=== PATIENT | male | born 1950 | race Caucasian/White ===

== ENCOUNTER 2017-03-16 02:59 | Emergency (ER) | payer BC ==
[2017-03-16] MEDS ORDERED: Fentanyl 100 MCG/2 ML VIAL ONE (03:20)
[2017-03-16] MEDS ORDERED: Ketorolac Tromethamine 30 MG/ML VIAL ONE (03:20)
[2017-03-16] MEDS ORDERED: Ketorolac Tromethamine 60 MG/2 ML VIAL ONE (03:21)
[2017-03-16 03:34] LABS: #Basophils 0.1 thou/uL (0.0-0.2); #Eosinphils 0.2 thou/uL (0.0-0.7); #Lymphocytes 3.2 thou/uL (1.20-3.40); #Monocytes 0.9 thou/uL (0.11-0.59); #Neutrophils 9.1 thou/uL (1.40-6.50); %Basophils 0.9 % (0.0-1.0); %Eosinophils 1.6 % (0.0-10.0); %Lymphocytes 23.8 % (21.0-51.0); %Monocytes 6.6 % (0.0-10.0); Hemoglobin 16.4 g/dL (14.0-18.0); Mean Corpuscular HGB CONC 33.9 g/dL (32.0-36.0); Mean Corpuscular Hemoglobin 30.1 pg (27.0-31.0); Mean Platelet Volume 8.9 fL (7.4-10.4); Platelet Count 211 thou/uL (130-400); RBC Distribution Width 12.8 % (11.5-14.5); Red Blood Cell (RBC) Count 5.45 mill/uL (4.70-6.10); White Blood Cell (WBC) Count 13.5 thou/uL (4.8-10.8)
[2017-03-16] MEDS ORDERED: Ondansetron HCl/PF 4 MG/2 ML Vial ONE (03:35)
[2017-03-16 03:45] LABS: ALT (SGPT) 32 U/L (0-55); AST (SGOT) 19 U/L (5-34); Albumin 4.5 g/dL (3.4-4.8); Alkaline Phosphatase 57 U/L (40-150); Anion Gap 16 mmol/L (10-20); BUN (Urea Nitrogen) 19 mg/dL (8.4-25.7); Bilirubin, Total 1.1 mg/dL (0.2-1.2); Calc. Creatinine Clearance 0 mL/min (70-130); Calcium 9.3 mg/dL (7.8-10.44); Carbon Dioxide 24 mmol/L (23-31); Chloride 110 mmol/L (98-107); Estimated GFR-MDRD 61; Globulin 2.1 g/dL (2.4-3.5); Glucose 155 mg/dL (80-115); Potassium 3.6 mmol/L (3.5-5.1); Protein, Total 6.6 g/dL (5.8-8.1); Sodium 146 mmol/L (136-145)
[2017-03-16 03:53] LABS: Bilirubin Negative (Negative); Blood, Urine Moderate (Negative); Clarity Slightly Cloudy (Clear); Glucose, Urine (Dipstick) Negative (Negative); Leukocyte Negative (Negative); Nitrite Negative (Negative); Protein, Urine (Dipstick) 100 mg/dL (Neg-Trace); Urobilinogen 0.2 mg/dL (0.2-1.0); pH, Urine 5.5 (5.0-9.0)
[2017-03-16 03:54] LABS: Specific Gravity, Urine 1.021 (1.002-1.036)
[2017-03-16 04:00] LABS: Bacteria/HPF Rare-Few HPF (None Seen); Squamous Epithelial 0-3 HPF (0-3); WBC/HPF 0-3 HPF (0-3)
--- NOTE | 2017-03-16 07:35 | CT ---
PRELIMINARY REPORT/[facility]/EMERGENCY AFTER HOURS PROCEDURE: EXAM: CT Abdomen and Pelvis Without Intravenous Contrast CLINICAL HISTORY: 66 years old, male; Pain; Abdominal pain; Flank; Right; Patient HX: Pt presents to the er for rt fla nk pain/ beginning 30 mins ago. Pt stating he has had kidney stones before and this feels similar. TECHNIQUE: Axial computed tomography images of the abdomen and pelvis without intravenous contrast. This CT exa m was performed using one or more of the following dose reduction techniques: automated exposure con trol, adjustment of the mA and/or kV according to patient size, and/or use of iterative reconstructi on technique. Coronal reformatted images were created and reviewed. COMPARISON: No relevant prior studies available. FINDINGS: Lower thorax: No acute findings. ABDOMEN: Liver: Unremarkable. Gallbladder and bile ducts: Unremarkable. No calcified stones. No ductal dilation. Pancreas: Unremarkable. No ductal dilation. Spleen: Unremarkable. No splenomegaly. Adrenals: Unremarkable. No mass. Kidneys and ureters: 6 mm obstructing stone in the mid-distal right ureter causing mild obstructive uropathy. Nonobstructing stones in the kidneys bilaterally. Stomach and bowel: Colonic diverticulosis. No diverticulitis. No obstruction. Appendix: Normal appendix. PELVIS: Bladder: Unremarkable. No stones. Reproductive: Unremarkable as visualized. ABDOMEN and PELVIS: Intraperitoneal space: Unremarkable. No free air. No significant fluid collection. Bones/joints: No acute fracture. No dislocation. Soft tissues: Unremarkable. Vasculature: Unremarkable. No abdominal aortic aneurysm. Lymph nodes: Unremarkable. No enlarged lymph nodes. IMPRESSION: 6 mm obstructing stone in the mid-distal right ureter causing mild obstructive uropathy. Thank you for allowing us to participate in the care of your patient. Dictated and Authenticated by: Denilson Zavaleta MD 03/16/2017 4:16 AM Central Time ([place] \T\ [place]) FINAL REPORT CT ABDOMEN AND PELVIS WITHOUT CONTRAST: Date: 03/16/[address] of the abdomen and pelvis was performed for evaluation of right flank pain. Axial slices w ere acquired, then coronal reconstructions were done. Reference was made to a 05/01/08 CT scan, whic h showed a nonobstructing left renal calculus. Today's exam shows a 6-7 mm calculus in the mid to distal right ureter just above the level of the a cetabulum that is causing moderate right hydronephrosis and hydroureter. In addition to this stone, there are nonobstructing stones in each kidney. One of the left is the largest and measures just ove r 1.0 cm in size. The lung bases are clear. The liver, spleen, pancreas, gallbladder, adrenal glands, and abdominal ao rta showed no acute findings within the limitations of a noncontrast scan. The bowel was nondistende d with no sign of inflammatory change. There was no sign of appendicitis or diverticulitis, though t here are a few small diverticula in the sigmoid region. CT of the pelvis shows no evidence of mass, free fluid, or inflammatory change. An incidental findin g is a suggestion of a small central disc bulge at the L4-L5 level that does not appear to cause sig nificant impingement. IMPRESSION: 1. 6-7 mm mid to distal right ureteral calculus causing moderate hydronephrosis. 2. Nonobstructing bilateral renal calculi. 3. Mild diverticulosis. 4. Mild central disc bulge at L4-L5 without impingement. Report in agreement with preliminary reading by Zachary. POS: HOME
== END 2017-03-16 04:37 | disposition home or self-care (01) ==
LOC: BURERS 02:59
DX: N13.2 Hydronephrosis with renal and ureteral calculous obstruction (principal); E78.5 Hyperlipidemia, unspecified; F17.220 Nicotine dependence, chewing tobacco, uncomplicated
CPT/HCPCS: 74176; 80053; 81003; 81015; 85025; 96374; 96375; J1885; J2405; J3010

== ENCOUNTER 2024-05-13 10:58 | Emergency (ER) | payer MEDICARE, BC ==
[2024-05-13] MEDS ORDERED: Lidocaine 1% w/Epinephrine 1:100K 20 ML VIAL ONE (11:07)
[2024-05-13] MEDS ORDERED: Boostrix 0.5 ML (Tdap) VIAL (>/=7 yrs of age) ONE (14:14)
== END 2024-05-13 13:48 | disposition home or self-care (01) ==
LOC: BURERS 10:58
DX: S01.81XA Laceration without foreign body of other part of head, initial encounter (principal); I25.10 Atherosclerotic heart disease of native coronary artery without angina pectoris; K21.9 Gastro-esophageal reflux disease without esophagitis; E78.00 Pure hypercholesterolemia, unspecified; F17.220 Nicotine dependence, chewing tobacco, uncomplicated; W22.8XXA Striking against or struck by other objects, initial encounter; Z79.82 Long term (current) use of aspirin; Z23 Encounter for immunization; Z79.899 Other long term (current) drug therapy
CPT/HCPCS: 12013; 70450; 90471; 90715